=== PATIENT | male | born 1995 | race Caucasian/White ===

== ENCOUNTER 2016-12-30 14:17 | Emergency (ER) | payer SELFPAY ==
[2016-12-30 14:28] VITALS: BMI 30.1
--- NOTE | 2016-12-30 14:29 | PDOC ---
Rapid Medical Evaluation Chief Complaint: Constipation Time Seen by Provider: 12/30/16 14:23 Medical Evaluation: 12/30/16 14:26 Pain to abdomen- thinks is constipated - noted blood on paper Friday only., no fevers, vomiting, 12/30/16 14:28
--- NOTE | 2016-12-30 16:41 | PDOC ---
History of Present Illness - General History Source: Patient Exam Limitations: No Limitations - History of Present Illness Initial Comments: 12/30/16 16:42 The patient is a 21-year old man with no past medical history who presents to the emergency department via walk-in for abdominal pain. He admits that he has been experiencing intermittent left lower quadrant pulsating pains for the past 2-3 months. He admits he ignored his symptoms, as they would spontaneously resolve on their own throughout the day. Patient notes that 2 days ago, he was at work, when he suddenly felt constant left lower quadrant pain. He also recalls that his pain is exacerbated when he strains to have a bowel movement. He also notes streaks of bright red blood when he has a bowel movement. He also reports associated symptoms of nausea. Patient denies ever experiencing similar symptoms in the past. No other complaints. He denies chest pain, cough, shortness of breath, headache He denies vomiting, diarrhea He denies dysuria, hematuria, urinary frequency/urgency, flank pain, testicular pain or penile discharge. Allergies: No Known Drug Allergies Past Surgical History: None reported Social History: Current everyday cigarette smoker (approximately 5 cigarettes/ day). Drinks approximately 8-10 cans of beer every 8 days. No recreational drug use. Primary Care Physician: N/A <Tess Lew - Last Filed: 12/30/16 16:52> <Anayeli Lovelace - Last Filed: 12/30/16 16:56> <Haley So - Last Filed: 12/30/16 18:14> - General Chief Complaint: Pain Stated Complaint: PAIN Time Seen by Provider: 12/30/16 14:23 Past History <Tess Lew - Last Filed: 12/30/16 16:52> - Psycho/Social/Smoking Cessation Hx Suicidal Ideation: No Smoking History: Current every day smoker Number of Cigarettes Smoked Daily: 5 Information on smoking cessation initiated: No <Anayeli Lovelace - Last Filed: 12/30/16 16:56> <Haley So - Last Filed: 12/30/16 18:14> - Past Medical History Allergies/Adverse Reactions: Allergies Allergy/AdvReac Type Severity Reaction Status Date / Time No Known Allergies Allergy Verified 12/30/16 14:28 Home Medications: Ambulatory Orders NK [No Known Home Medication] 12/30/16 Review of Systems - Review of Systems Able to Perform ROS?: Yes Comments:: 12/30/16 16:42 GENERAL/CONSTITUTIONAL: No fever or chills. No weakness. HEAD, EYES, EARS, NOSE AND THROAT: No change in vision. No ear pain or discharge. No sore throat. CARDIOVASCULAR: No chest pain or shortness of breath. RESPIRATORY: No cough, wheezing, or hemoptysis. GASTROINTESTINAL: Yes: Left sided abdominal pain. Nausea. Blood per rectum. constipation. No vomiting, diarrhea. GENITOURINARY: No dysuria, frequency, or change in urination. MUSCULOSKELETAL: No joint or muscle swelling or pain. No neck or back pain. SKIN: No rash NEUROLOGIC: No headache, vertigo, loss of consciousness, or change in strength/ sensation. ENDOCRINE: No increased thirst. No abnormal weight change. HEMATOLOGIC/LYMPHATIC: No anemia, easy bleeding, or history of blood clots. ALLERGIC/IMMUNOLOGIC: No hives or skin allergy. <Tess Lew - Last Filed: 12/30/16 16:52> *Physical Exam - Vital Signs Last Vital Signs Temp Pulse Resp BP Pulse Ox 98.1 F 88 18 115/74 97 12/30/16 14:23 12/30/16 14:23 12/30/16 14:23 12/30/16 14:23 12/30/16 14:23 - Physical Exam Comments: 12/30/16 16:42 GENERAL: Awake, alert, and fully oriented, in no acute distress HEAD: No signs of trauma EYES: PERRLA, EOMI, sclera anicteric, conjunctiva clear ENT: Auricles normal inspection, hearing grossly normal, nares patent, oropharynx clear without exudates. Moist mucosa NECK: Normal ROM, supple, no lymphadenopathy, JVD, or masses LUNGS: Breath sounds equal, clear to auscultation bilaterally. No wheezes, and no crackles HEART: Regular rate and rhythm, normal S1 and S2, no murmurs, rubs or gallops ABDOMEN: Soft, nontender, normoactive bowel sounds. No guarding, no rebound. No masses EXTREMITIES: Normal range of motion, no edema. No clubbing or cyanosis. No cords, erythema, or tenderness NEUROLOGICAL: Cranial nerves II through XII grossly intact. Normal speech RECTAL: No stool in the vault. Nontender. No external/internal hemorrhoids. No active bleeding. No masses. <Tess Lew - Last Filed: 12/30/16 16:52> - Vital Signs Last Vital Signs Temp Pulse Resp BP Pulse Ox 98.1 F 88 18 115/74 97 12/30/16 14:23 12/30/16 14:23 12/30/16 14:23 12/30/16 14:23 12/30/16 14:23 <Anayeli Lovelace - Last Filed: 12/30/16 16:56> - Vital Signs Last Vital Signs Temp Pulse Resp BP Pulse Ox 98.1 F 88 18 115/74 97 12/30/16 14:23 12/30/16 14:23 12/30/16 14:23 12/30/16 14:23 12/30/16 14:23 <Haley So - Last Filed: 12/30/16 18:14> ED Treatment Course - LABORATORY CBC & Chemistry Diagram: 12/30/16 17:00 12/30/16 17:00 - ADDITIONAL ORDERS Additional order review: Laboratory Results 12/30/16 17:00 Sodium 140 Potassium 4.3 Chloride 106 Carbon Dioxide 30 Anion Gap 4 L BUN 9 Creatinine 0.8 Creat Clearance w eGFR > 60 Random Glucose 89 Calcium 9.4 Total Bilirubin 0.6 AST 28 ALT 39 Alkaline Phosphatase 81 Total Protein 7.6 Albumin 4.4 12/30/16 17:00 RBC 5.36 MCV 88.7 MCHC 34.1 RDW 13.0 MPV 7.8 Neutrophils % 68.9 Lymphocytes % 22.8 Monocytes % 6.7 Eosinophils % 1.1 Basophils % 0.5 <Haley So - Last Filed: 12/30/16 18:14> Medical Decision Making - Medical Decision Making 12/30/16 16:56 Pt presents to the ED complaining of a several month history of intermittent epigastric pain. Presents today because the pain was acutely worse on Friday. pain has since resolved. Abdomen is non tender. Also complaining of pain with defacation and one episode of blood streaked stool on Friday. rectal exam is normal. Will check labs to rule out biliary or pancreatic disease, discharge home if negative. <Anayeli Lovelace - Last Filed: 12/30/16 16:56> *DC/Admit/Observation/Transfer - Attestations Scribe Attestion: 12/30/16 16:43 Documentation prepared by Tess Lew, acting as internist medical doctor md for Anayeli Lovelace MD, /DO. <Tess Lew - Last Filed: 12/30/16 16:52> <Anayeli Lovelace - Last Filed: 12/30/16 16:56> <JudahHaleysamaria Castaneda - Last Filed: 12/30/16 18:14> Diagnosis at time of Disposition: Constipation Qualifiers: Constipation type: other constipation type Qualified Code(s): K59.09 - Other constipation Abdominal pain Qualifiers: Abdominal location: left lower quadrant Qualified Code(s): R10.32 - Left lower quadrant pain - Discharge Dispostion Disposition: HOME Condition at time of disposition: Stable - Patient Instructions Printed Discharge Instructions: DI for Constipation, DI for Abdominal Pain- Adult Additional Instructions: please follow up at the [facility] at [address] [place] [address] .The telephone number is [phone]
[2016-12-30 17:14] LABS: BASOPHIL 0.5 % (0-2.0); EOSINOPHIL 1.1 % (0-4.5); MCH 30.3 pg (25.7-33.7); MCHC 34.1 g/dl (32.0-35.9); MEAN CELL VOLUME 88.7 fl (80-96); MEAN PLT VOLUME 7.8 fl (7.5-11.1); NEUTROPHILS 68.9 % (42.8-82.8); PLATELET COUNT 259 K/MM3 (134-434); WHITE BLOOD COUNT 7.1 K/mm3 (4.0-10.0)
[2016-12-30 17:46] LABS: ALBUMIN 4.4 g/dl (3.4-5.0); ALK PHOS 81 U/L (45-117); ANION GAP 4 (8-16); BILIRUBIN,TOTAL 0.6 mg/dL (0.2-1.0); CALCIUM 9.4 mg/dL (8.5-10.1); CO2 30 mmol/L (21-32); CREATININE 0.8 mg/dL (0.7-1.3); GLUCOSE,RANDOM 89 mg/dL (74-106); SGOT/AST 28 U/L (15-37); SGPT/ALT 39 U/L (12-78); TOT PROT 7.6 g/dl (6.4-8.2)
[2016-12-30 19:08] VITALS: BP 112/59; PULSE 65; TEMP 98
== END 2016-12-30 19:08 | disposition home or self-care (01) ==
LOC: JER 14:17
DX: K59.00 Constipation, unspecified (principal)
CPT/HCPCS: 36415; 74020-TC; 80053; 85025; 99282-25

== ENCOUNTER 2018-11-05 05:27 | Inpatient (IN) | payer OTHER ==
[2018-11-05 05:48] VITALS: BMI 23.8
--- NOTE | 2018-11-05 05:51 | PDOC ---
History of Present Illness - General Chief Complaint: Pain, Acute Stated Complaint: ABD PAIN Time Seen by Provider: 11/05/18 05:50 History Source: Patient - History of Present Illness Initial Comments: 11/05/18 06:30 The patient is a 23 year old Kiswahili speaking/LEP male with no reported PMH who presents to our ED c/o acute onset of abdominal pain. Pain woke patient from sleep around 1 a.m. and is sharp, constant, epigastric and worse with laying supine. Endorses nausea w/o vomiting and chills. Denies fever, diarrhea/ constipation, dysuria/hematuria, scrotal/penile pain. H/o similar pain four years previous when he was in [place] which was self-resolving. NKDA Surgical: none reported PMD: None will refer to IM resident clinic As per EMR, patient evaluated in our ED in 2017 for LLQ abdominal pain. Discharged home with supportive care. Past History - Past Medical History Allergies/Adverse Reactions: Allergies Allergy/AdvReac Type Severity Reaction Status Date / Time No Known Allergies Allergy Verified 11/05/18 05:54 Home Medications: Ambulatory Orders NK [No Known Home Medication] 12/30/16 - Suicide/Smoking/Psychosocial Hx Smoking History: Current every day smoker Number of Cigarettes Smoked Daily: 4 Information on smoking cessation initiated: No Review of Systems - Review of Systems Constitutional: Yes: Chills. No: Fever Respiratory: No: Shortness of Breath, Wheezing Cardiac (ROS): No: Chest Pain, Lightheadedness, Palpitations, Syncope ABD/GI: Yes: Nausea, Abdominal cramping. No: Constipated, Diarrhea, Vomiting : No: Burning, Dysuria, Testicular Pain *Physical Exam - Vital Signs Last Vital Signs Temp Pulse Resp BP Pulse Ox 98.0 F 92 H 16 139/82 99 11/05/18 05:35 11/05/18 05:35 11/05/18 05:35 11/05/18 05:35 11/05/18 05:35 - Physical Exam Comments: 11/05/18 07:01 Awake, alert, non-toxic Abdomen: soft, peritoneal (guarding) w/palpation, equivocal Gutierrez's sign CV: S1, S2 no M/R/G Lungs: CLTA B/L Neuro: A&O x3 ED Treatment Course - LABORATORY CBC & Chemistry Diagram: 11/05/18 06:45 11/05/18 06:45 Medical Decision Making - Medical Decision Making 11/05/18 06:33 23 year old male with acute onset of abdominal pain. VS unremarkable. PE significant for TTP in epigastrum with peritoneal sign (rebound). Bedside U/S equivocal for acute cholecystitis. Also consider early appendicitis, pancreatitis, viral gastritis. Less likely SBO, bowel perforation or colitis. PLAN: 1. CBC, CMP, T&S, PT/PTT, Lipase 2. CTAP w/IV contrast 3. IV fluid 4. Morphine for pain control Reassess 11/05/18 07:16 Patient signed out to Dr. Judge (Resident) and Dr. Hoffman (Attending) Labs, CTAP pending *DC/Admit/Observation/Transfer Diagnosis at time of Disposition: Abdominal pain - Referrals Referrals: Weston Bower MD [Staff Physician] - - Patient Instructions - Post Discharge Activity
[2018-11-05] MEDS ORDERED: morphine CARPU-JECT 4 MG/1 ML DISP.SYRIN IVPUSH ONE (06:35)
[2018-11-05] MEDS ORDERED: SODIUM CHLORIDE 0.9% 500 ML INFUS.BAG IV ONE ×2 (06:35→09:58)
[2018-11-05] MEDS ORDERED: morphine SULFATE 4 MG/ML VIAL ONE (06:38)
[2018-11-05 06:57] LABS: EOS % 1.2 % (0-4.5); HEMATOCRIT 46.4 % (35.4-49); LYMPH % 9.9 % (8-40); MCH 30.4 pg (25.7-33.7); MCHC 34.5 g/dl (32.0-35.9); MEAN CELL VOLUME 88.1 fl (80-96); MEAN PLT VOLUME 7.5 fl (7.5-11.1); MONO % 6.9 % (3.8-10.2); PLATELET COUNT 245 K/MM3 (134-434); RBC 5.26 M/mm3 (4.00-5.60); RDW 13.2 % (11.9-15.9); WHITE BLOOD COUNT 9.7 K/mm3 (4.0-10.0)
[2018-11-05 07:09] LABS: INR 1.06 (0.83-1.09); PROTHROMBIN TIME (PATIENT) 12.5 SEC (9.7-13.0)
[2018-11-05 07:12] LABS: ACTIVATED PTT 31.7 SECONDS (25.2-36.5)
--- NOTE | 2018-11-05 07:14 | PDOC ---
Attending Attestation - Resident Resident Name: Ju Sheth - ED Attending Attestation I have performed the following: I have examined & evaluated the patient, The case was reviewed & discussed with the resident, I agree w/resident's findings & plan (v) - HPI HPI: 11/09/18 23:41 23-year-old otherwise healthy male complaining of abdominal pain, sudden in onset. - Physicial Exam PE: 11/09/18 23:41 Agree with resident's exam - Medical Decision Making 11/09/18 23:41 23-year-old male with abdominal pain Labs and CT scan for rule out appendicitis pending and signed out to oncoming shift
[2018-11-05 07:20] LABS: ALBUMIN 4.4 g/dl (3.4-5.0); ALK PHOS 98 U/L (45-117); ANION GAP 9 MMOL/L (8-16); BILIRUBIN,TOTAL 0.8 mg/dL (0.2-1); BLOOD UREA NITROGEN 14 mg/dL (7-18); CALCIUM 9.4 mg/dL (8.5-10.1); CHLORIDE 103 mmol/L (98-107); CO2 26 mmol/L (21-32); CREATININE 0.7 mg/dL (0.55-1.3); GLUCOSE,RANDOM 108 mg/dL (74-106); LIPASE 84 U/L (73-393); POTASSIUM 3.8 mmol/L (3.5-5.1); SGOT/AST 46 U/L (15-37); SGPT/ALT 123 U/L (13-61); SODIUM 138 mmol/L (136-145); TOT PROT 7.6 g/dl (6.4-8.2)
--- NOTE | 2018-11-05 07:49 | PDOC ---
*Physical Exam - Vital Signs Last Vital Signs Temp Pulse Resp BP Pulse Ox 98.0 F 92 H 16 139/82 99 11/05/18 05:35 11/05/18 05:35 11/05/18 05:35 11/05/18 05:35 11/05/18 05:35 - Physical Exam General Appearance: Yes: Appropriately Dressed, Moderate Distress HEENT: positive: PINA, Normal ENT Inspection, Normal Voice Neck: positive: Supple Respiratory/Chest: positive: Lungs Clear, Normal Breath Sounds. negative: Respiratory Distress Cardiovascular: positive: Regular Rhythm, Regular Rate, S1, S2 Vascular Pulses: Dorsalis-Pedis (R): 2+, Doralis-Pedis (L): 2+ Gastrointestinal/Abdominal: positive: Tender (RLQ), Flat, Decreased BS, Guarding , Rebound, Tenderness ([place]urney). negative: Normal Bowel Sounds, Soft, Increased Bowel Sounds Rectal Exam: positive: deferred Lymphatic: negative: Adenopathy Musculoskeletal: positive: Normal Inspection. negative: CVA Tenderness, Decreased Range of Motion Extremity: positive: Normal Capillary Refill, Normal Inspection, Normal Range of Motion Integumentary: positive: Normal Color, Dry, Warm (HOT) Neurologic: positive: Fully Oriented, Alert, Normal Mood/Affect, Normal Response ED Treatment Course - LABORATORY CBC & Chemistry Diagram: 11/05/18 06:45 11/05/18 06:45 - ADDITIONAL ORDERS Additional order review: Laboratory Results 11/05/18 11/05/18 06:45 06:45 PT with INR 12.50 INR 1.06 PTT (Actin FS) 31.7 Sodium 138 Potassium 3.8 Chloride 103 Carbon Dioxide 26 Anion Gap 9 BUN 14 Creatinine 0.7 Creat Clearance w eGFR 141.02 Random Glucose 108 H Calcium 9.4 Total Bilirubin 0.8 AST 46 H ALT 123 H Alkaline Phosphatase 98 Total Protein 7.6 Albumin 4.4 Lipase 84 11/05/18 06:45 RBC 5.26 MCV 88.1 MCHC 34.5 RDW 13.2 MPV 7.5 Neutrophils % 81.0 Lymphocytes % 9.9 D Monocytes % 6.9 Eosinophils % 1.2 Basophils % 1.0 - Medications Given in the ED: ED Medications Discontinued Medications Generic Name Dose Route Start Last Admin Trade Name Freq PRN Reason Stop Dose Admin Morphine Sulfate 4 mg 11/05/18 06:35 11/05/18 06:45 Morphine Injection - IVPUSH 11/05/18 06:36 4 mg ONCE ONE Administration Sodium Chloride 1,000 ml 11/05/18 06:35 11/05/18 06:45 Normal Saline - IV 11/05/18 06:36 1,000 ml ONCE ONE Administration Medical Decision Making - Medical Decision Making Patient signed out to me from Dr. Sheth the night resident. The patient is a 23 year old Arabic speaking/LEP male with no reported PMH who presents to our ED c/o acute onset of abdominal pain. Pain woke patient from sleep around 1 a.m. worse with laying supine. Endorses nausea w/o vomiting and chills. Denies fever, diarrhea/constipation, dysuria/hematuria, scrotal/penile pain. H/o similar pain four years previous when he was in [place] which was self -resolving. VS: WNL PE: Patient feels warm to me. Abdominal pain is worst in the RLQ. There is rebound and guarding. DDx IBNLT: Most likely appendicitis, will rule out cholecystitis, pancreatitis, colitis, and diverticulitis. Plan: Pre-op labs, NPO, lactic acid, CTAP, IV hydration, Analgesia, Surgical consult, probable admit. CT shows appendicitis. Surgery consult - Dr. Duncan rizo - Dr. Miranda is covering. Spoke with Dr. Lemon who requests to start Zosyn and he will see the patient today. Will admit to hospitalist. *DC/Admit/Observation/Transfer Diagnosis at time of Disposition: Abdominal pain, Acute appendicitis - Discharge Dispostion Condition at time of disposition: Guarded Decision to Admit order: Yes - Referrals Referrals: Weston Bower MD [Staff Physician] - - Patient Instructions - Post Discharge Activity
--- NOTE | 2018-11-05 08:50 | PDOC ---
*Physical Exam - Vital Signs Last Vital Signs Temp Pulse Resp BP Pulse Ox 98.7 F 83 17 136/73 98 11/05/18 08:43 11/05/18 08:43 11/05/18 08:43 11/05/18 08:43 11/05/18 08:44 ED Treatment Course - LABORATORY CBC & Chemistry Diagram: 11/05/18 06:45 11/05/18 06:45 - ADDITIONAL ORDERS Additional order review: Laboratory Results 11/05/18 11/05/18 11/05/18 07:27 06:45 06:45 PT with INR INR PTT (Actin FS) Sodium 138 Potassium 3.8 Chloride 103 Carbon Dioxide 26 Anion Gap 9 BUN 14 Creatinine 0.7 Creat Clearance w eGFR 141.02 Random Glucose 108 H Lactic Acid 0.8 Calcium 9.4 Total Bilirubin 0.8 AST 46 H ALT 123 H Alkaline Phosphatase 98 Total Protein 7.6 Albumin 4.4 Lipase 84 Blood Type O POSITIVE Antibody Screen Negative 11/05/18 06:45 PT with INR 12.50 INR 1.06 PTT (Actin FS) 31.7 Sodium Potassium Chloride Carbon Dioxide Anion Gap BUN Creatinine Creat Clearance w eGFR Random Glucose Lactic Acid Calcium Total Bilirubin AST ALT Alkaline Phosphatase Total Protein Albumin Lipase Blood Type Antibody Screen 11/05/18 06:45 RBC 5.26 MCV 88.1 MCHC 34.5 RDW 13.2 MPV 7.5 Neutrophils % 81.0 Lymphocytes % 9.9 D Monocytes % 6.9 Eosinophils % 1.2 Basophils % 1.0 - Medications Given in the ED: ED Medications Discontinued Medications Generic Name Dose Route Start Last Admin Trade Name Freq PRN Reason Stop Dose Admin Morphine Sulfate 4 mg 11/05/18 06:35 11/05/18 06:45 Morphine Injection - IVPUSH 11/05/18 06:36 4 mg ONCE ONE Administration Sodium Chloride 1,000 ml 11/05/18 06:35 11/05/18 06:45 Normal Saline - IV 11/05/18 06:36 1,000 ml ONCE ONE Administration Medical Decision Making - Medical Decision Making 11/05/18 08:49 23 yo m presenting with a complaint of abdominal pain concerning for appendicitis CT demonstrates acute appendicitis without abscess IVF Will give Zosyn Call placed to Dr Lemon (Gen surg) Will admit to hospitalist service *DC/Admit/Observation/Transfer Diagnosis at time of Disposition: Abdominal pain, Acute appendicitis - Discharge Dispostion Condition at time of disposition: Stable Decision to Admit order: Yes - Referrals Referrals: Weston Bower MD [Staff Physician] - - Patient Instructions - Post Discharge Activity
[2018-11-05] MEDS ORDERED: PIPERACILLIN/TAZOB 4.5 GM 4.5 GM in DEXTROSE 5%-WATER 100 ML IVPB ONE (08:51)
[2018-11-05] MEDS ORDERED: PIPERACILLIN/TAZOB 4.5 GM 4.5 GM/100 ML BAG IVPB ONE (08:54)
[2018-11-05] MEDS ORDERED: morphine SULFATE 4 MG/ML VIAL IVPUSH PRN (09:52)
--- NOTE | 2018-11-05 09:54 | HP ---
CHIEF COMPLAINT: PCP: HISTORY OF PRESENT ILLNESS: This is a 23 yo M with no PMH, who presents due to sudden onset of severe abdominal pain. Pain started at 1 am, waking him up from sleep, is sharp, constant, epigastric, nonradiating, aggravated by lying down, associated with n/ v and chills. Denies fever, diarrhea/constipation, dysuria/hematuria, scrotal/ penile pain. Ct abd/pelvis in ED showed acute appendicitis w/o abscess, surgery was consulted and agreed to take patient to OR. ER course was notable for: (1)ct abd pelvis, labs (2)morphine, zosyn Recent Travel: denies PAST MEDICAL HISTORY: as above PAST SURGICAL HISTORY: as above Social History: Smoking: denies Alcohol: denies Drugs: denies Family History: noncontributory Allergies No Known Allergies Allergy (Verified 11/05/18 05:54) HOME MEDICATIONS: Home Medications Medication Instructions Recorded NK [No Known Home Medication] 12/30/16 REVIEW OF SYSTEMS CONSTITUTIONAL: Absent: fever, diaphoresis, generalized weakness, weight change HEENT: Absent: rhinorrhea, nasal congestion, throat pain CARDIOVASCULAR: Absent: chest pain, syncope, palpitations RESPIRATORY: Absent: cough, shortness of breath GASTROINTESTINAL: Absent: diarrhea, constipation, melena, hematochezia GENITOURINARY: Absent: dysuria MUSCULOSKELETAL: Absent: back pain, neck pain SKIN: Absent: rash, itching, pallor HEMATOLOGIC/IMMUNOLOGIC: Absent: easy bleeding, easy bruising ENDOCRINE: Absent: unexplained weight gain, unexplained weight loss NEUROLOGIC: Absent: headache, focal weakness or paresthesias PSYCHIATRIC: Absent: anxiety, depression PHYSICAL EXAMINATION Vital Signs - 24 hr 11/05/18 11/05/18 11/05/18 05:35 08:43 08:44 Temperature 98.0 F 98.7 F Pulse Rate 92 H Pulse Rate [ 83 Right] Respiratory 16 17 Rate Blood Pressure 139/82 Blood Pressure 136/73 [Right Arm] O2 Sat by Pulse 99 98 98 Oximetry (%) GENERAL: Awake, alert, and fully oriented, in no acute distress. HEAD: Normal with no signs of trauma. EYES: Pupils equal, round and reactive to light, extraocular movements intact, sclera anicteric, conjunctiva clear. EARS, NOSE, THROAT: Moist mucous membranes. NECK: supple LUNGS: Breath sounds equal, clear to auscultation bilaterally. HEART: Regular rate and rhythm, normal S1 and S2 ABDOMEN: s/p lap appe surgical incisions clean nondraining. globally reduced bowel sounds MUSCULOSKELETAL: No CVA tenderness. UPPER EXTREMITIES: 2+ pulses, warm, well-perfused. No peripheral edema. LOWER EXTREMITIES: warm, well-perfused. No calf tenderness. No peripheral edema. NEUROLOGICAL: Cranial nerves II-XII grossly intact. Normal speech. PSYCHIATRIC: Cooperative. Good eye contact. Appropriate mood and affect. SKIN: Warm, dry Laboratory Results - last 24 hr 11/05/18 11/05/18 11/05/18 06:45 06:45 06:45 WBC 9.7 RBC 5.26 Hgb 16.0 Hct 46.4 MCV 88.1 MCH 30.4 MCHC 34.5 RDW 13.2 Plt Count 245 MPV 7.5 Absolute Neuts (auto) 7.9 Neutrophils % 81.0 Lymphocytes % 9.9 D Monocytes % 6.9 Eosinophils % 1.2 Basophils % 1.0 Nucleated RBC % 0 PT with INR 12.50 INR 1.06 PTT (Actin FS) 31.7 Sodium 138 Potassium 3.8 Chloride 103 Carbon Dioxide 26 Anion Gap 9 BUN 14 Creatinine 0.7 Creat Clearance w eGFR 141.02 Random Glucose 108 H Lactic Acid Calcium 9.4 Total Bilirubin 0.8 AST 46 H ALT 123 H Alkaline Phosphatase 98 Total Protein 7.6 Albumin 4.4 Lipase 84 Blood Type Antibody Screen 11/05/18 11/05/18 11/05/18 06:45 07:27 08:45 WBC RBC Hgb Hct MCV MCH MCHC RDW Plt Count MPV Absolute Neuts (auto) Neutrophils % Lymphocytes % Monocytes % Eosinophils % Basophils % Nucleated RBC % PT with INR INR PTT (Actin FS) Sodium Potassium Chloride Carbon Dioxide Anion Gap BUN Creatinine Creat Clearance w eGFR Random Glucose Lactic Acid 0.8 Calcium Total Bilirubin AST ALT Alkaline Phosphatase Total Protein Albumin Lipase Blood Type O POSITIVE Cancelled Antibody Screen Negative 11/05/18 08:45 WBC RBC Hgb Hct MCV MCH MCHC RDW Plt Count MPV Absolute Neuts (auto) Neutrophils % Lymphocytes % Monocytes % Eosinophils % Basophils % Nucleated RBC % PT with INR INR PTT (Actin FS) Sodium Potassium Chloride Carbon Dioxide Anion Gap BUN Creatinine Creat Clearance w eGFR Random Glucose Lactic Acid Calcium Total Bilirubin AST ALT Alkaline Phosphatase Total Protein Albumin Lipase Blood Type O POSITIVE Antibody Screen ASSESSMENT/PLAN: This is a 23 yo M with no PMH, who presents due to sudden onset of severe abdominal pain. Acute appendicitis POD 0 s/p lap appe -pain management with morphine iv and oxycodone po -IVF hydration NS @ 100 -incentive spirometer -wound care -regular diet per surgery -IV zosyn -zofran prn -ppi -scds Roberta - Problem List - Problem (1) Acute appendicitis Code(s): K35.80 - UNSPECIFIED ACUTE APPENDICITIS Visit type - Emergency Visit Emergency Visit: Yes ED Registration Date: 11/05/18 Care time: The patient presented to the Emergency Department on the above date and was hospitalized for further evaluation of their emergent condition. - New Patient This patient is new to me today: Yes Date on this admission: 11/05/18 - Critical Care Critical Care patient: No
[2018-11-05] MEDS ORDERED: MIDAZOLAM HCL 2 MG/2 ML SINGLE DOSE VIAL ONE (12:00)
[2018-11-05] MEDS ORDERED: ROCURONIUM BROMIDE 50 MG/5 ML VIAL ONE (12:00)
[2018-11-05] MEDS ORDERED: BUPIVACAINE HCL/PF 0.5% (5MG/ML) 10 ML VIAL ONE (12:28)
--- NOTE | 2018-11-05 12:28 | PN ---
Progress Note (short form) - Note Progress Note: surgery pt seen and examined. full consult dictated. 23m with appendicitis. for surgery. delgado.
[2018-11-05] MEDS ORDERED: oxyCODONE HCL 5 MG TABLET PO PRN (12:31)
[2018-11-05] MEDS ORDERED: ACETAMINOPHEN 325 MG TABLET (FP) PO PRN (12:31)
[2018-11-05] MEDS ORDERED: morphine SULFATE 4 MG/ML VIAL IVPB PRN (12:31)
[2018-11-05] MEDS ORDERED: ONDANSETRON 4 MG/2 ML VIAL IVPUSH PRN (12:31)
--- NOTE | 2018-11-05 12:44 | OP ---
Operative Note - Note: Operative Date: 11/05/18 Pre-Operative Diagnosis: acute appendicitis Operation: laparoscopic appendectomy, lavage Findings: thickened, inflamed appendix, non perforated Post-Operative Diagnosis: Same as Pre-op Surgeon: Baljit Lemon Anesthesiologist/DOG RAISER: Vitor Gutierrez Anesthesia: General Specimens Removed: appendix Estimated Blood Loss (mls): 10 Operative Report Dictated: Yes
[2018-11-05] MEDS ORDERED: SODIUM CHLORIDE 1,000 ML IV SCH (12:45)
[2018-11-05] MEDS ORDERED: BUPIVACAINE HCL/PF (5 MG/ML) 30 ML VIAL IJ ONE (13:15)
[2018-11-05] MEDS ORDERED: NEOSTIGMINE METHYLSULFATE 0.5 MG/1 ML - 10 ML MDV ONE (13:24)
--- NOTE | 2018-11-05 13:37 | EKG ---
Test Reason : Blood Pressure : / mmHG Vent. Rate : 097 BPM Atrial Rate : 097 BPM P-R Int : 130 ms QRS Dur : 096 ms QT Int : 352 ms P-R-T Axes : 050 031 033 degrees QTc Int : 447 ms NORMAL SINUS RHYTHM WITH SINUS ARRHYTHMIA NORMAL ECG NO PREVIOUS ECGS AVAILABLE Confirmed by CHUN LERMA MD ([id number]) on 11/05/2018 1:36:46 PM Referred By: Confirmed By:CHUN LERMA MD
--- NOTE | 2018-11-05 13:37 | CONS ---
DATE OF CONSULTATION: 11/05/2018 REASON FOR CONSULTATION: Acute appendicitis. This is an emergency consultation. BRIEF HISTORY: This is a 23-year-old male who presents to [facility] with now almost 12 hours of right lower quadrant abdominal pain without nausea or vomiting. He was noted to have normal labs. He had a CT scan of his abdomen and pelvis which was consistent with acute uncomplicated appendicitis. The patient was admitted to the hospital, started on Zosyn antibiotic and currently feels well without fever. PAST MEDICAL HISTORY: Negative. PAST SURGICAL HISTORY: Nil. SOCIAL HISTORY: Positive for alcohol and tobacco. He has been encouraged to quit. FAMILY HISTORY: Negative for malignancy in the immediate family. MEDICATIONS: He takes no medications. ALLERGIES: He has no known drug allergies. REVIEW OF SYSTEMS: General: Denies fatigue or malaise. Cardiac: Denies chest pain or palpitations. Respiratory: Denies shortness of breath or wheeze. Gastrointestinal: As seen in HPI. Denies diarrhea, denies blood in his stool, denies recent weight loss. Genitourinary: Denies dysuria. Musculoskeletal: Denies joint pain. Psychiatric: Denies depression, anxiety, or hearing voices. PHYSICAL EXAMINATION: General: This is a well-developed, well-nourished 23-year-old male in no distress. Vital signs: He is afebrile. HEENT: His head is normocephalic. His sclerae are anicteric. Neck: Supple. Chest: Clear. Abdomen: Soft. He has mild lateral right lower quadrant tenderness without rebound or guarding. He has no obvious hernias. He has a small scar in his left upper quadrant, which he states is nonsurgical. Extremities: Have no edema. REVIEW OF LABORATORY DATA: White blood cell count is 9.7 without a shift, coagulation profile is normal. Chemistries are unremarkable with the exception of mildly elevated transaminases. ASSESSMENT: This is a 23-year-old male with right lower quadrant pain, right lower quadrant tenderness, and a CT scan evidence of acute appendicitis. Clinically, this is acute appendicitis. He is currently responding well to medical management. However, he wishes to proceed with surgery. He prefers the more definitive nature of surgery, the likely decreased length of stay, the prevention of future recurrence, and the ability to pathologically evaluate the appendix. Risks and benefits were explained to the patient in detail. These are including, but not limited to, the possibility of conversion to open, possibility of injury to viscera or bladder, possibility of blood loss requiring blood transfusion, possibility of future infection, possibility of future hernia, possibility of future obstruction, plus a multitude of medical risks including, but not limited to, cardiac, neurologic, pulmonary, and vascular complications, even . Patient understands these risks and is agreeable to surgery. I agree with the choice of Zosyn antibiotic and will proceed with surgery. DO TOMMIE RICKETTS/[id number]
[2018-11-05] MEDS ORDERED: LACTATED RINGERS SOLUTION 1,000 ML IV SCH (14:30)
[2018-11-05] MEDS: PIPERACILLIN/TAZOB 3.375 GM 3.375 GM in DEXTROSE 5%-WATER - 50 ML IVPB SCH ×4 (15:00→20:21)
[2018-11-05] MEDS ORDERED: PIPERACILLIN/TAZOB 3.375 GM 3.375 GM in DEXTROSE 5%-WATER - 50 ML IVPB SCH (15:00)
--- NOTE | 2018-11-05 15:13 | OP ---
DATE OF OPERATION: 11/05/2018 PREOPERATIVE DIAGNOSIS: Acute appendicitis. POSTOPERATIVE DIAGNOSIS: Acute appendicitis. PROCEDURE: Laparoscopic appendectomy, lavage. SURGEON: Baljit Lemon DO EDUCATIONAL TECHNOLOGY COORDINATOR: There was no store administrative assistant. ANESTHESIOLOGIST: Vitor Gutierrez MD (general) INTRAOPERATIVE FINDINGS: A very thick and inflamed, retrocecal, nonperforated appendix. BLOOD LOSS: Minimal. COMPLICATIONS: None. DRAINS: None. DISPOSITION: To recovery in stable condition. BRIEF HISTORY: This is a 23-year-old male, presented to [facility] with signs and symptoms of acute appendicitis. He had a CAT scan to support that. He presents now for surgery. He had received Zosyn antibiotic. PROCEDURE: The patient was placed in supine position. General anesthesia was initiated. The abdomen was prepped and draped in sterile fashion, and a Bonilla catheter had been inserted. Next, a vertical incision was made infraumbilical with scalpel used to go through skin and subcutaneous tissue. The fascia was then lifted with a Juarez clamp and incised vertically. The peritoneum was entered bluntly. Next, a 0 Vicryl stitch was placed across the fascial defect and used to secure the Rachel trocar. Pneumoperitoneum was then created, followed by insertion of a 5- mm 30-degree laparoscope. An additional 5-mm trocar was placed suprapubic and one in the left lower quadrant. Attention was then turned toward the right lower quadrant. The appendix was seen, it was retrocecal, and became apparent once the cecum was mobilized. A window was made at its base. The LigaSure device was used to divide the mesoappendix with multiple welds. There appeared to be an appendicolith at its base. The Ethicon purple load 45-mm stapler was used to take the appendix at its base just proximal to the appendicolith along the cecal cap in 1 firing. The staple line was inspected, it was intact. There was no bleeding, no breaks, no sign of ischemia. The appendix was placed in a specimen bag and removed through the infraumbilical trocar site and sent to Pathology marked as specimen. A limited lavage was done and all return was clear. Pneumoperitoneum was released. No blood was noted. The fascia of the infraumbilical trocar site was closed with multiple interrupted 0 Vicryl sutures and the 3 skin incisions were closed with Biosyn, and Dermabond dressing was placed. Overall the patient tolerated the procedure well , there were no complications, Bonilla catheter was placed at the beginning of the operation, it was removed at the end. DO TOMMIE RICKETTS/[id number] MTDD
--- NOTE | 2018-11-05 20:11 | PN ---
Teaching Attending Note Name of Resident: Thania Cheng ATTENDING PHYSICIAN STATEMENT I saw and evaluated the patient. I reviewed the resident's note and discussed the case with the resident. I agree with the resident's findings and plan as documented. SUBJECTIVE: Seen and examined at bedside, patient is postop and feeling better, hungry OBJECTIVE: Vital Signs Period Temp Pulse Resp BP Sys/Menezes Pulse Ox Last 24 Hr 97.9 F-99.0 F 79-700 15-22 115-145/66-88 94-100 Laboratory Results - last 24 hr 11/05/18 11/05/18 11/05/18 06:45 06:45 06:45 WBC 9.7 RBC 5.26 Hgb 16.0 Hct 46.4 MCV 88.1 MCH 30.4 MCHC 34.5 RDW 13.2 Plt Count 245 MPV 7.5 Absolute Neuts (auto) 7.9 Neutrophils % 81.0 Lymphocytes % 9.9 D Monocytes % 6.9 Eosinophils % 1.2 Basophils % 1.0 Nucleated RBC % 0 PT with INR 12.50 INR 1.06 PTT (Actin FS) 31.7 Sodium 138 Potassium 3.8 Chloride 103 Carbon Dioxide 26 Anion Gap 9 BUN 14 Creatinine 0.7 Creat Clearance w eGFR 141.02 Random Glucose 108 H Lactic Acid Calcium 9.4 Total Bilirubin 0.8 AST 46 H ALT 123 H Alkaline Phosphatase 98 Total Protein 7.6 Albumin 4.4 Lipase 84 Blood Type Antibody Screen 11/05/18 11/05/18 11/05/18 06:45 07:27 08:45 WBC RBC Hgb Hct MCV MCH MCHC RDW Plt Count MPV Absolute Neuts (auto) Neutrophils % Lymphocytes % Monocytes % Eosinophils % Basophils % Nucleated RBC % PT with INR INR PTT (Actin FS) Sodium Potassium Chloride Carbon Dioxide Anion Gap BUN Creatinine Creat Clearance w eGFR Random Glucose Lactic Acid 0.8 Calcium Total Bilirubin AST ALT Alkaline Phosphatase Total Protein Albumin Lipase Blood Type O POSITIVE Cancelled Antibody Screen Negative 11/05/18 08:45 WBC RBC Hgb Hct MCV MCH MCHC RDW Plt Count MPV Absolute Neuts (auto) Neutrophils % Lymphocytes % Monocytes % Eosinophils % Basophils % Nucleated RBC % PT with INR INR PTT (Actin FS) Sodium Potassium Chloride Carbon Dioxide Anion Gap BUN Creatinine Creat Clearance w eGFR Random Glucose Lactic Acid Calcium Total Bilirubin AST ALT Alkaline Phosphatase Total Protein Albumin Lipase Blood Type O POSITIVE Antibody Screen Negative Current Medications Acetaminophen (Tylenol -) 650 mg PO Q4H PRN PRN Reason: FEVER Enoxaparin Sodium (Lovenox -) 40 mg SQ DAILY FRANKLYN Sodium Chloride (Normal Saline -) 1,000 mls @ 100 mls/hr IV ASDIR FRANKLYN Last Admin: 11/05/18 15:40 Dose: 0 mls Piperacillin Sod/Tazobactam (Sod 3.375 gm/ Dextrose) 50 mls @ 100 mls/hr IVPB Q6H-IV FRANKLYN; Protocol Piperacillin Sod/Tazobactam (Sod 3.375 gm/ Dextrose) 50 mls @ 100 mls/hr IVPB Q6H-IV FRANKLYN Stop: 11/06/18 09:29 Last Admin: 11/05/18 15:00 Dose: 50 mls Morphine Sulfate (Morphine Sulfate) 4 mg IVPB Q3H PRN PRN Reason: PAIN LEVEL 7 - 10 Last Admin: 11/05/18 17:34 Dose: 4 mg Ondansetron HCl (Zofran Injection) 4 mg IVPUSH Q6H PRN PRN Reason: NAUSEA Oxycodone HCl (Roxicodone -) 7.5 mg PO Q4H PRN PRN Reason: PAIN LEVEL 4 - 6 Pantoprazole Sodium (Protonix Iv) 40 mg IVPUSH DAILY FRANKLYN ALL IMAGING REPORTS REVIEWED PHYSICAL EXAM: GENERAL: NAD, COMFORTABLE CVS: S1S2, RRR, NO M/R/G ABDOMEN: SOFT, POST INCISIONAL TENDERNESS, ND, NABS LUNGS: CTA B/L, NO W/R/R, UNLABORED EXT: NO C/C/E, NO EDEMA ASSESSMENT AND PLAN: -Acute appendicitis POD #0 s/p lap appendectomy, no complications -pain management adequate -IVF, if tolerates dinner dc fluids -incentive spirometer, encouraged ambulation -c/w IV abx -antiemetics prn -patient admits to drinking etoh 4-5 times a week and smokes 5 cigarettes a day , counseled on cessation
[2018-11-05] MEDS ORDERED: PIPERACILLIN/TAZOBACTAM 3.375 GM VIAL IVPB ONE (20:13)
[2018-11-05] MEDS ORDERED: DEXTROSE 5%-WATER - 50 ML IVPB ONE (20:14)
[2018-11-06] MEDS ORDERED: PIPERACILLIN/TAZOBACTAM 3.375 GM VIAL IVPB ONE ×2 (02:57→09:10)
[2018-11-06] MEDS ORDERED: DEXTROSE 5%-WATER - 50 ML IVPB ONE ×2 (02:57→09:10)
[2018-11-06] MEDS: PIPERACILLIN/TAZOB 3.375 GM 3.375 GM in DEXTROSE 5%-WATER - 50 ML IVPB SCH ×2 (03:02→09:14)
[2018-11-06 07:00] LABS: BASO % 0.2 % (0-2.0); EOS % 0.5 % (0-4.5); HEMATOCRIT 40.4 % (35.4-49); HEMOGLOBIN 13.8 GM/dL (11.7-16.9); LYMPH % 17.8 % (8-40); MCH 30.6 pg (25.7-33.7); MCHC 34.3 g/dl (32.0-35.9); MEAN CELL VOLUME 89.5 fl (80-96); NEUT % 70.5 % (42.8-82.8); PLATELET COUNT 232 K/MM3 (134-434); RBC 4.51 M/mm3 (4.00-5.60); WHITE BLOOD COUNT 8.7 K/mm3 (4.0-10.0)
[2018-11-06 07:04] LABS: ANION GAP 6 MMOL/L (8-16); BLOOD UREA NITROGEN 10 mg/dL (7-18); CALCIUM 8.2 mg/dL (8.5-10.1); CHLORIDE 105 mmol/L (98-107); CO2 28 mmol/L (21-32); CREATININE 0.8 mg/dL (0.55-1.3); GLUCOSE,RANDOM 100 mg/dL (74-106); MAGNESIUM 2.3 mg/dL (1.8-2.4); PHOSPHOROUS 4.6 mg/dL (2.5-4.9); POTASSIUM 4.2 mmol/L (3.5-5.1); SODIUM 139 mmol/L (136-145)
[2018-11-06] MEDS ORDERED: PANTOPRAZOLE SODIUM 40 MG VIAL IVPUSH SCH (10:00)
[2018-11-06] MEDS ORDERED: ENOXAPARIN NA (PORCINE) 40 MG/0.4 ML DISP.SYRIN SQ SCH (10:00)
--- NOTE | 2018-11-06 12:18 | PN ---
Progress Note (short form) - Note Progress Note: surgery pt tolerating diet. ambulating and voiding. afebrile wbc 8 Plan- surgically stable for d/c. recommend 5 days augmentin 875 bid. ok to shower. regular diet. f/u in 2 weeks. [phone]
[2018-11-06] MEDS ORDERED: PIPERACILLIN/TAZOB 3.375 GM 3.375 GM in DEXTROSE 5%-WATER - 50 ML IVPB SCH (15:00)
[2018-11-06 15:18] VITALS: BP 108/68; PULSE 65; TEMP 98.4
--- NOTE | 2018-11-06 15:23 | PN ---
Teaching Attending Note Name of Resident: Susanne Mcclure ATTENDING PHYSICIAN STATEMENT I saw and evaluated the patient. I reviewed the resident's note and discussed the case with the resident. I agree with the resident's findings and plan as documented. SUBJECTIVE: no fever or chills . , has mild abd pain . no N.V OBJECTIVE: NAD CV: RRr Lungs: CTAB Abd: soft, Nd, TTP in RLQ. endoscopic wounds are clean and no discharge noted ASSESSMENT AND PLAN: 23 y/o man with no significant PMH who presented with abd pain and was found to have acute appendicitis 1- Acute appendicitis : s/p resection doing well. dc oon augmentin per Sx Recs f/u with dr. Lemon tylenol and ibuprofen for pain as needed dc home
--- NOTE | 2018-11-06 18:13 | DS ---
Physical Exam: SUBJECTIVE: Patient seen and examined at bedside this morning. no acute events overnight. Patient was able to tolerate regular diet with no nausea and vomiting. OBJECTIVE: Vital Signs Temperature 98.4 F 11/06/18 15:17 Pulse Rate 65 11/06/18 15:17 Respiratory Rate 20 11/06/18 10:00 Blood Pressure 108/68 11/06/18 15:17 O2 Sat by Pulse Oximetry (%) 96 11/06/18 09:00 PHYSICAL EXAM GENERAL: The patient is awake, alert, and fully oriented, in no acute distress. HEAD: Normal with no signs of trauma. EYES: PERRLA, EOMI, sclera anicteric, conjunctiva clear. ENT: oropharynx clear without exudates, moist mucous membranes. NECK: Trachea midline, full range of motion, supple. LUNGS: Breath sounds equal, clear to auscultation bilaterally. HEART: Regular rate and rhythm, S1, S2 without murmur, rub or gallop. ABDOMEN: Soft, +tenderness around incision sites, nondistended, normoactive bowel sounds. EXTREMITIES: 2+ pulses, warm, well-perfused, no edema. NEUROLOGICAL: Cranial nerves II through XII grossly intact. Normal speech, normal gait. PSYCH: Normal mood, normal affect. SKIN: Warm, dry, normal turgor, no rashes or lesions noted. LABS Laboratory Results - last 24 hr 11/06/18 11/06/18 05:45 05:45 WBC 8.7 RBC 4.51 Hgb 13.8 Hct 40.4 MCV 89.5 MCH 30.6 MCHC 34.3 RDW 13.0 Plt Count 232 MPV 8.0 Absolute Neuts (auto) 6.1 Neutrophils % 70.5 Lymphocytes % 17.8 D Monocytes % 11.0 H Eosinophils % 0.5 Basophils % 0.2 Nucleated RBC % 0 Sodium 139 Potassium 4.2 Chloride 105 Carbon Dioxide 28 Anion Gap 6 L BUN 10 Creatinine 0.8 Creat Clearance w eGFR 120.88 Random Glucose 100 Calcium 8.2 L Phosphorus 4.6 Magnesium 2.3 HOSPITAL COURSE: Date of Admission:11/05/18 Date of Discharge: 11/06/18 Patient is a 23 year old male with no significant past medical history presented to the ED with severe RLQ pain. CTAP showed acute appendicitis. Patient underwent laparoscopy appendectomy and showed inflamed appendix with no perforation. Patient tolerated the procedure well and pain was controlled. Patient was started on regular diet and was able to tolerate food. Patient was discharged with instructions to followup with PCP and surgery. Minutes to complete discharge: 37 Discharge Summary Reason For Visit: ACUTE APPENDICITIS Condition: Improved - Instructions Diet, Activity, Other Instructions: Your visit You were admitted to the hospital because you had belly pain. You had appendicitis. You underwent surgery with Dr. Laurent and had your appendix removed. Medications Please take the following medications as prescribed. 1. Augmentin 875mg twice a day for 5 days. Follow-up Please follow up with the surgeon (Dr. Laurent) in 2 weeks. Please follow up with your primary care doctor within 1 week. Please call the resident medical clinic to schedule an appointment with Dr. Verde. Orlando Ruiz M.D. Britt Bean.Joanne. [address], [address] [place] [address] Post Anesthesia/IV Sedation Do not drive a motor vehicle or drink alcohol for the next 24 hours. Physical Activity Resume normal everyday activity as tolerated. No heavy lifting or exercise until seen by your surgeon. You may walk unlimited amounts and climb stairs. You may resume driving a car when you feel safe and comfortable behind the wheel. Wound Care / Bathing If you have a bandage, leave it on, and keep dry, for 48 to 72 hours. After that time, discard the outer bandage. If there are tapes on the skin under the outer bandage, leave then in place. They will peel of in the next 7-10 days. Do not peel them off. You may shower in 48-72 hours after the bandage removal. If there are tapes present on the skin, you may shower over them. If you have clear glue covering your incision, you may shower in 24 hours. It will peel off in the next 1-2 weeks. Diet There are no dietary restrictions. Eat healthy, high fiber foods. Drink 6-8 glasses of fluid each day. This will assist in keeping your bowels regular. Pain Management You may take Tylenol (Acetaminophen) or Ibuprofen (Motrin, Advil, etc) for mild pain. Prescription medication, if ordered, should be taken as prescribed for moderate to severe pain. Bruising Some black and blue areas on or around your surgical site are normal and will disappear in a few days. Male groin hernia patients may experience swelling and black/blueness in the penis and scrotum. This will resolve on its own in 1-[address] PANDEY / DR. RUIZ / DR. LAURENT FOR ANY OF THE FOLLOWING: * Severe pain not relieved by medication * Fever of 101 or higher * Excessive bleeding or drainage on dressing * Inability to urinate Call the office at [phone] for an appointment in 10-14 days. Referrals: [facility] [place] [Provider Group] Baljit Laurent MD [Staff Physician] - 2 Weeks Disposition: HOME - Home Medications Comprehensive Discharge Medication List: Ambulatory Orders Acetaminophen [Tylenol .Regular Strength -] 650 mg PO Q4H PRN tablet 11/06/18 Amoxicillin/Potassium Clav [Augmentin 875-125 Tablet] 1 each PO BID #10 tablet 11/06/18 Ibuprofen 400 mg PO Q8H PRN #20 tablet 11/06/18 This patient is new to me today: Yes Date on this admission: 11/06/18 Emergency Visit: Yes ED Registration Date: 11/05/18 Care time: The patient presented to the Emergency Department on the above date and was hospitalized for further evaluation of their emergent condition. Critical Care patient: No - Discharge Referral Referred to [facility] Med [facility] No
--- NOTE | 2018-11-09 16:19 | PATH ---
Surgical Pathology Report Patient Name: NOHELIA AKERS [facility]. Rec. #: [id number] /Age/Gender: 1995 (Age: 23) / M Account: [id number] Location: [address] [place] [address] Taken: 11/05/2018 Received: 11/06/2018 Reported: 11/09/2018 Physicians: Balijt Lemon M.D. PHYSICIAN EMERGENCY DEPT Specimen(s) Received APPENDIX Clinical History Acute appendicitis Final Diagnosis APPENDIX, APPENDECTOMY: ACUTE APPENDICITIS AND PERIAPPENDICITIS. Electronically Signed Seun Frank M.D. Gross Description Received in formalin, labeled "appendix," is a 7 cm. in length vermiform appendix with a stapled margin of resection and moderate attached fat. The serosa is stevenson-ag and smooth. Sectioning reveals brown fecal material within lumen. The wall of the appendix averages 0.1 cm. in thickness. Calibration Laboratory Technician sections are submitted in one cassette. /11/06/2018 saudi11/06/2018
== END 2018-11-06 17:34 | disposition home or self-care (01) | DRG 225 ==
LOC: JER 05:27 → JERBED 08:55 → J6S 10:54
PROVIDERS: ADMIT Internal Medicine; ATTEND Internal Medicine
PROC: 0DTJ4ZZ Resection of Appendix, Percutaneous Endoscopic Approach (ICD-10-PCS; principal; 2018-11-05 12:30)
DX: K35.890 Other acute appendicitis without perforation or gangrene (principal)
CPT/HCPCS: 36415; 74177-TC; 80048; 80053; 83605; 83690; 83735; 84100; 85025; 85610; 85730; 86850; 86900; 86901; 88304-TC; 93005; 93010; 94760; 99283-25; J7030

== ENCOUNTER 2018-12-03 23:43 | Emergency (ER) | payer OTHER | END 2018-12-04 03:55 | disposition home or self-care (01) | LOC: JER 23:43 | PROC: 3E0337Z Introduction of Electrolytic and Water Balance Substance into Peripheral Vein, Percutaneous Approach (ICD-10-PCS; principal; 2018-12-03) | DX: R42 Dizziness and giddiness (principal); K52.9 Noninfective gastroenteritis and colitis, unspecified; R55 Syncope and collapse ==

== ENCOUNTER 2019-01-06 15:25 | Emergency (ER) | payer OTHER ==
[2019-01-06 15:30] VITALS: BMI 22.6
--- NOTE | 2019-01-06 15:39 | PDOC ---
Rapid Medical Evaluation Chief Complaint: Pain Time Seen by Provider: 01/06/19 15:29 Medical Evaluation: Allergies Allergy/AdvReac Type Severity Reaction Status Date / Time No Known Allergies Allergy Verified 01/06/19 15:31 Vital Signs Temp Pulse Resp BP Pulse Ox 98.1 F 85 18 122/70 99 01/06/19 15:27 01/06/19 15:27 01/06/19 15:27 01/06/19 15:27 01/06/19 15:27 01/06/19 15:35 Pt c/o: continual nausea and palpitations since appendectomy a few months ago. Pt went to the medical center and was told he needed to f/u with pmd and entrance guard. no c /o palpitations today Pt on brief exam: vss, no abd tenderness Pt ordered for: labs and urine pt to proceed to the ED Discharge Disposition - Diagnosis Nausea, Hepatic steatosis - Discharge Dispostion Disposition: HOME Condition at time of disposition: Stable - Prescriptions Prescriptions: Ondansetron [Zofran Odt -] 4 mg SL TID PRN #21 od.tablet PRN Reason: nausea Pantoprazole Sodium [Protonix] 40 mg PO DAILY #20 tablet.dr - Referrals Referrals: Elver Briones MD [Staff Physician] - - Patient Instructions Printed Discharge Instructions: Nonalcoholic Fatty Liver Disease Additional Instructions: Your CATs scan shows hepatic steatosis which is a fatty infiltrate of the liver and mild enlarged spleen. Take prescribed medication as needed for nausea. eat low fat diet. Follow-up with referred GI doctor Print Language: ROMANSH - Post Discharge Activity
[2019-01-06 16:34] LABS: BASO % 0.8 % (0-2.0); HEMATOCRIT 49.4 % (35.4-49); HEMOGLOBIN 16.5 GM/dL (11.7-16.9); LYMPH % 23.1 % (8-40); MCH 29.1 pg (25.7-33.7); MCHC 33.3 g/dl (32.0-35.9); MEAN CELL VOLUME 87.5 fl (80-96); MEAN PLT VOLUME 8.3 fl (7.5-11.1); MONO % 11.4 % (3.8-10.2); NEUT % 63.7 % (42.8-82.8); PLATELET COUNT 198 K/MM3 (134-434); RBC 5.65 M/mm3 (4.00-5.60); RDW 12.3 % (11.9-15.9); WHITE BLOOD COUNT 5.2 K/mm3 (4.0-10.0)
--- NOTE | 2019-01-06 16:41 | PDOC ---
History of Present Illness - General Chief Complaint: Pain Stated Complaint: ABD PAIN Time Seen by Provider: 01/06/19 15:29 History Source: Patient Exam Limitations: Clinical Condition - History of Present Illness Initial Comments: 01/06/19 16:36 Patient with no significant past medical history status post appendectomy 2 months ago present with complaint of persistent nausea, decreased appetite, intermittent vomiting and epigastric pain for months now. Patient reports symptoms started after appendectomy surgery and resolved but started again. Patient was seen a month for same symptoms with no findings. Denies fever, chills, dizziness, diarrhea or constipation. Patient reported losing 10 pounds in the past month due to loss of appetite. Denies any other symptoms Timing/Duration: other (1 month) Past History - Past Medical History Allergies/Adverse Reactions: Allergies Allergy/AdvReac Type Severity Reaction Status Date / Time No Known Allergies Allergy Verified 01/06/19 15:31 Home Medications: Ambulatory Orders Ondansetron [Zofran Odt -] 4 mg SL TID PRN #21 od.tablet 01/06/19 Pantoprazole Sodium [Protonix] 40 mg PO DAILY #20 tablet. 01/06/19 COPD: No - Suicide/Smoking/Psychosocial Hx Smoking History: Never smoked Have you smoked in the past 12 months: No Number of Cigarettes Smoked Daily: 4 Information on smoking cessation initiated: No 'Breaking Loose' booklet given: 11/05/18 Hx Alcohol Use: No Drug/Substance Use Hx: No Review of Systems - Review of Systems Able to Perform ROS?: Yes Is the patient limited Yi proficient: No Constitutional: No: Chills, Fever, Weakness HEENTM: No: Symptoms Reported Respiratory: No: Symptoms reported Cardiac (ROS): No: Symptoms Reported, See HPI, Chest Pain, Edema, Irregular Heart Rate, Lightheadedness, Palpitations, Syncope, Chest Tightness, Other ABD/GI: Yes: Symptoms Reported, See HPI, Nausea, Poor Appetite, Vomiting ( intermittent), Abdominal cramping (epigastric). No: Abdominal Distended, Abd. Pain w/ defecation, Constipated, Diarrhea, Difficulty Swallowing, Rectal Bleeding, Tarry Stools : No: Burning, Discharge, Frequency, Urgency Neurological: No: Symptoms reported, Weakness, Dizziness All Other Systems: Reviewed and Negative *Physical Exam - Vital Signs Last Vital Signs Temp Pulse Resp BP Pulse Ox 98.1 F 85 18 122/70 99 01/06/19 15:27 01/06/19 15:27 01/06/19 15:27 01/06/19 15:27 01/06/19 15:27 - Physical Exam Comments: 01/06/19 16:40 GENERAL: Well developed, well nourished. Awake and alert. No acute distress. HEENT: Normocephalic, atraumatic. PERRLA, EOMI. No conjunctival pallor. Sclera are non-icteric. Moist mucous membranes. Oropharynx is clear. NECK: Supple. Full ROM. CARDIOVASCULAR: Regular rate and rhythm. No murmurs, rubs, or gallops. Distal pulses are 2+ and symmetric. PULMONARY: No evidence of respiratory distress. Lungs clear to auscultation bilaterally. No wheezing, rales or rhonchi. ABDOMINAL: Soft. Mild epigastric tenderness with deep palpation. Non-distended. No rebound or guarding. No organomegaly. Normoactive bowel sounds. MUSCULOSKELETAL Normal range of motion at all joints. SKIN: Warm and dry. Normal capillary refill. NEUROLOGICAL: Alert, awake, appropriate. Gait is normal without ataxia. PSYCHIATRIC: Cooperative. Good eye contact. Appropriate mood General Appearance: Yes: Nourished, Appropriately Dressed. No: Apparent Distress ED Treatment Course - LABORATORY CBC & Chemistry Diagram: 01/06/19 16:21 01/06/19 16:21 Medical Decision Making - Medical Decision Making 01/06/19 16:37 Patient with no significant past medical history status post appendectomy 2 months ago present with complaint of persistent nausea, decreased appetite, intermittent vomiting and epigastric pain for months now. Patient reports symptoms started after appendectomy surgery and resolved but started again. Patient was seen a month for same symptoms with no findings. Denies fever, chills, dizziness, diarrhea or constipation. Patient reported losing 10 pounds in the past month due to loss of appetite. Denies any other symptoms Exam significant for mild epigastric tenderness to deep palpation with normal bowel sounds otherwise normal exam. Patient no acute distress. No rebound or guarding. Symptoms likely gastritis versus obstruction versus less likely cholecystitis. CBC, chemistry, UA urine culture lab ordered. Abdominal CAT scan with IV contrast ordered to rule out acute pathology. Treat based on lab and imaging results 01/06/19 18:37 CBC, CMP and UA labs unremarkable. patient still no distress. pt pending abd CT 01/06/19 19:[address] by tech due to patient having IV infiltrate with CT contrast with swelling over bicipital muscle of right upper arm with patient report mild pain to right biceps with tightness of area from contrast infiltrate. Warm pack applied to right biceps area to help with swelling. Patient in no acute pathology 01/06/19 20:[address] shows no acute pathology except mild splenomegaly and hepatic steatosis. Patient stable for discharge on zofran prn for nausea with GI follow-up. Complete resolve of swelling of right biceps with warm compress. Patient in no acute distress and stable for discharge *DC/Admit/Observation/Transfer Diagnosis at time of Disposition: Nausea, Hepatic steatosis - Discharge Dispostion Disposition: HOME Condition at time of disposition: Stable Decision to Admit order: No - Prescriptions Prescriptions: Ondansetron [Zofran Odt -] 4 mg SL TID PRN #21 od.tablet PRN Reason: nausea Pantoprazole Sodium [Protonix] 40 mg PO DAILY #20 tablet.dr - Referrals Referrals: Elver Briones MD [Staff Physician] - - Patient Instructions Printed Discharge Instructions: Nonalcoholic Fatty Liver Disease Additional Instructions: Your CATs scan shows hepatic steatosis which is a fatty infiltrate of the liver and mild enlarged spleen. Take prescribed medication as needed for nausea. eat low fat diet. Follow-up with referred GI doctor Print Language: FRENCH - Post Discharge Activity
[2019-01-06 17:02] LABS: ALBUMIN 4.6 g/dl (3.4-5.0); BLOOD UREA NITROGEN 10.2 mg/dL (7-18); CALCIUM 9.2 mg/dL (8.5-10.1); MAGNESIUM 2.3 mg/dL (1.8-2.4); POTASSIUM 4.5 mmol/L (3.5-5.1); TOT PROT 8.1 g/dl (6.4-8.2)
[2019-01-06 18:05] LABS: URINE APPEARANCE CLEAR; URINE BILIRUBIN NEGATIVE (NEGATIVE); URINE COLOR YELLOW; URINE GLUCOSE (UA) NEGATIVE (NEGATIVE); URINE KETONE NEGATIVE (NEGATIVE); URINE LEUK ESTERASE NEGATIVE (NEGATIVE); URINE NITRITE NEGATIVE (NEGATIVE); URINE PROTEIN NEGATIVE (NEGATIVE)
[2019-01-06 23:35] VITALS: BP 115/63; PULSE 63; TEMP 98.4
== END 2019-01-06 21:12 | disposition home or self-care (01) ==
LOC: JER 15:25
DX: E88.89 Other specified metabolic disorders (principal); R11.0 Nausea
CPT/HCPCS: 36415; 74177-TC; 80053; 81003; 83735; 85025; 87086; 99284-25

== ENCOUNTER 2021-11-24 00:23 | Emergency (ER) | payer OTHER ==
[2021-11-24 00:56] VITALS: BMI 25.6
[2021-11-24 01:01] VITALS: BP 126/75; PULSE 87; TEMP 98.2
[2021-11-24] MEDS ORDERED: IBUPROFEN 600 MG TABLET (FP) PO ONE ×2 (02:01→02:02)
[2021-11-24 02:47] LABS: URINE APPEARANCE CLEAR; URINE BILIRUBIN NEGATIVE (NEGATIVE); URINE COLOR YELLOW; URINE GLUCOSE (UA) NEGATIVE (NEGATIVE); URINE KETONE TRACE (NEGATIVE); URINE LEUK ESTERASE NEGATIVE (NEGATIVE); URINE NITRITE NEGATIVE (NEGATIVE); URINE PROTEIN NEGATIVE (NEGATIVE)
[2021-11-24] MEDS ORDERED: METHOCARBAMOL 500 MG TABLET PO ONE (03:39)
[2021-11-24] MEDS ORDERED: LIDOCAINE 5% TOPICAL PATCH TP ONE (03:40)
[2021-11-24] MEDS ORDERED: METHOCARBAMOL 500 MG TABLET ONE (03:42)
[2021-11-24] MEDS ORDERED: LIDOCAINE 5% TOPICAL PATCH ONE (03:42)
[2021-11-24] MEDS ORDERED: LIDOCAINE PATCH REMOVAL MC SCH (22:00)
== END 2021-11-24 03:53 | disposition home or self-care (01) ==
LOC: JER 00:23
DX: M62.830 Muscle spasm of back (principal); K52.9 Noninfective gastroenteritis and colitis, unspecified
CPT/HCPCS: 81003; 87086; 99284-25

== ENCOUNTER 2022-06-21 05:46 | Emergency (ER) | payer OTHER ==
[2022-06-21 05:56] VITALS: TEMP 98.6; BMI 25.4
[2022-06-21] MEDS ORDERED: FAMOTIDINE 20 MG/50 ML IVPB 20 MG in PREMIX 50 IVPB ONE (08:00)
[2022-06-21] MEDS ORDERED: MAG HYDROX/AL HYDROX/SIMETH -MYLANTA- ORAL SUSPENSION PO ONE (08:00)
[2022-06-21] MEDS ORDERED: SODIUM CHLORIDE 1,000 ML IV ONE (08:01)
[2022-06-21] MEDS ORDERED: FAMOTIDINE 20 MG/50 ML IVPB 20 MG/50 ML MG IVPB ONE (08:08)
[2022-06-21] MEDS ORDERED: MAG HYDROX/AL HYDROX/SIMETH 30 ML UNIT-DOSE CUP ONE (08:08)
[2022-06-21 08:54] LABS: BASO % 0.2 % (0-2.0); EOS % 1.2 % (0-4.5); HEMATOCRIT 48.6 % (35.4-49); HEMOGLOBIN 16.6 GM/dL (11.7-16.9); LYMPH % 14.4 % (8-40); MCH 29.6 pg (25.7-33.7); MCHC 34.1 g/dl (32.0-35.9); MEAN CELL VOLUME 86.6 fl (80-96); MEAN PLT VOLUME 8.3 fl (7.5-11.1); MONO % 7.2 % (3.8-10.2); PLATELET COUNT 255 10^3/uL (134-434); RBC 5.61 M/mm3 (4.00-5.60); RDW 12.8 % (11.9-15.9); WHITE BLOOD COUNT 7.8 K/mm3 (4.0-10.0)
[2022-06-21 11:11] VITALS: BP 113/63; PULSE 76; RESP 18
[2022-06-21 11:31] LABS: BLOOD UREA NITROGEN 15.5 mg/dL (7-18)
[2022-06-21 11:34] LABS: CREATININE 0.8 mg/dL (0.55-1.3)
[2022-06-21 11:35] LABS: BILIRUBIN,TOTAL 1.2 mg/dL (0.2-1); TOT PROT 7.1 g/dl (6.4-8.2)
== END 2022-06-21 12:09 | disposition home or self-care (01) ==
LOC: JER 05:46
PROC: 3E033GC Introduction of Other Therapeutic Substance into Peripheral Vein, Percutaneous Approach (ICD-10-PCS; principal; 2022-06-21)
PROC: 3E0337Z Introduction of Electrolytic and Water Balance Substance into Peripheral Vein, Percutaneous Approach (ICD-10-PCS; 2022-06-21)
DX: R10.13 Epigastric pain (principal); R11.0 Nausea
CPT/HCPCS: 36415; 76705-TC; 80053; 83690; 85025; 99284-25

== ENCOUNTER 2023-07-18 22:37 | Emergency (ER) | payer OTHER ==
[2023-07-18 22:44] VITALS: BP 114/66; PULSE 87; RESP 18; TEMP 98.4; BMI 25.9
[2023-07-18] MEDS ORDERED: FAMOTIDINE 20 MG/50 ML IVPB 20 MG/50 ML MG IVPB ONE ×2 (23:23→23:27)
[2023-07-18] MEDS ORDERED: MAG HYDROX/AL HYDROX/SIMETH -MYLANTA- ORAL SUSPENSION PO ONE (23:23)
[2023-07-18] MEDS ORDERED: MAG HYDROX/AL HYDROX/SIMETH 30 ML UNIT-DOSE CUP ONE (23:26)
[2023-07-18 23:53] LABS: BASO % 0.3 % (0-2.0); EOS % 1.3 % (0-4.5); HEMOGLOBIN 15.6 GM/dL (11.7-16.9); LYMPH % 34.3 % (8-40); MCH 29.1 pg (25.7-33.7); MCHC 33.9 g/dl (32.0-35.9); MEAN CELL VOLUME 85.7 fl (80-96); MEAN PLT VOLUME 7.9 fl (7.5-11.1); MONO % 7.9 % (3.8-10.2); NEUT % 56.2 % (42.8-82.8); PLATELET COUNT 239 10^3/uL (134-434); RBC 5.36 M/mm3 (4.00-5.60); RDW 12.9 % (11.9-15.9); WHITE BLOOD COUNT 6.1 K/mm3 (4.0-10.0)
[2023-07-19 00:09] LABS: POTASSIUM 3.9 mmol/L (3.5-5.1)
[2023-07-19 00:11] LABS: CALCIUM 9.2 mg/dL (8.5-10.1)
[2023-07-19 00:12] LABS: BLOOD UREA NITROGEN 14.2 mg/dL (7-18)
[2023-07-19 00:15] LABS: CREATININE 0.7 mg/dL (0.55-1.3)
[2023-07-19 00:16] LABS: BILIRUBIN,TOTAL 0.6 mg/dL (0.2-1); TOT PROT 7.2 g/dl (6.4-8.2)
== END 2023-07-19 00:51 | disposition home or self-care (01) ==
LOC: JER 22:37
PROC: 3E033GC Introduction of Other Therapeutic Substance into Peripheral Vein, Percutaneous Approach (ICD-10-PCS; principal; 2023-07-18)
DX: R10.13 Epigastric pain (principal); R19.7 Diarrhea, unspecified; Z20.822 Contact with and (suspected) exposure to COVID-19
CPT/HCPCS: 0241U-QW; 36415; 80053; 83690; 85025; 99284-25

== ENCOUNTER 2023-09-24 22:56 | Emergency (ER) | payer OTHER ==
[2023-09-24 23:00] VITALS: BP 152/86; PULSE 99; RESP 18; TEMP 98.4; BMI 25.9
[2023-09-24] MEDS ORDERED: MAG HYDROX/AL HYDROX/SIMETH 30 ML UNIT-DOSE CUP ONE (23:59)
[2023-09-24] MEDS ORDERED: ACETAMINOPHEN 325 MG TABLET (FP) ONE (23:59)
[2023-09-25] MEDS: ACETAMINOPHEN 500 MG TABLET (FP) PO ONE (00:06)
[2023-09-25] MEDS: MAG HYDROX/AL HYDROX/SIMETH 30 ML UNIT-DOSE CUP PO ONE (00:06)
[2023-09-25] MEDS ORDERED: KETOROLAC TROMETHAMINE 30 MG/1 ML VIAL ONE (01:03)
[2023-09-25] MEDS: KETOROLAC TROMETHAMINE 30 MG/1 ML VIAL IM ONE (01:15)
== END 2023-09-25 01:58 | disposition home or self-care (01) ==
LOC: JER 22:56
PROC: 3E0233Z Introduction of Anti-inflammatory into Muscle, Percutaneous Approach (ICD-10-PCS; principal; 2023-09-25)
DX: R07.89 Other chest pain (principal); R11.2 Nausea with vomiting, unspecified
CPT/HCPCS: 71046-TC-FY; 82962; 93005; 93010; 99285-25

== ENCOUNTER 2024-03-10 21:53 | Emergency (ER) | payer OTHER ==
[2024-03-10 22:06] VITALS: TEMP 98.4; BMI 25.4
[2024-03-10] MEDS ORDERED: FAMOTIDINE 20 MG TABLET ONE (22:44)
[2024-03-10] MEDS ORDERED: MAG HYDROX/AL HYDROX/SIMETH 30 ML UNIT-DOSE CUP ONE (22:44)
[2024-03-10] MEDS: MAG HYDROX/AL HYDROX/SIMETH 30 ML UNIT-DOSE CUP PO ONE (22:57)
[2024-03-10] MEDS: FAMOTIDINE 10 MG TABLET PO ONE ×2 (22:57→22:58)
[2024-03-10] MEDS: SODIUM CHLORIDE 0.9% 500 ML INFUS.BAG IV ONE (22:58)
[2024-03-10 23:02] LABS: BASO % 0.4 % (0-2.0); HEMATOCRIT 45.4 % (35.4-49); HEMOGLOBIN 15.8 GM/dL (11.7-16.9); MCH 30.5 pg (25.7-33.7); MCHC 34.8 g/dl (32.0-35.9); MEAN CELL VOLUME 87.6 fl (80-96); MEAN PLT VOLUME 7.5 fl (7.5-11.1); MONO % 7.5 % (3.8-10.2); NEUT % 57.1 % (42.8-82.8); PLATELET COUNT 240 10^3/uL (134-434); RBC 5.19 M/mm3 (4.00-5.60); RDW 12.9 % (11.9-15.9); WHITE BLOOD COUNT 6.6 K/mm3 (4.0-10.0)
[2024-03-10 23:32] LABS: POTASSIUM 4.2 mmol/L (3.5-5.1)
[2024-03-10 23:34] LABS: CALCIUM 8.7 mg/dL (8.5-10.1)
[2024-03-10 23:35] LABS: ALBUMIN 3.9 g/dl (3.4-5.0); BLOOD UREA NITROGEN 17.6 mg/dL (7-18)
[2024-03-10 23:38] LABS: CREATININE 0.9 mg/dL (0.55-1.3)
[2024-03-10 23:40] LABS: BILIRUBIN,TOTAL 0.7 mg/dL (0.2-1)
[2024-03-11 00:11] VITALS: BP 100/60; PULSE 54; RESP 14
== END 2024-03-11 00:10 | disposition home or self-care (01) ==
LOC: JER 21:53
DX: R11.2 Nausea with vomiting, unspecified (principal); R10.13 Epigastric pain; R14.0 Abdominal distension (gaseous)
CPT/HCPCS: 36415; 80053; 83690; 85025; 99284-25

== ENCOUNTER 2024-10-14 09:40 | Emergency (ER) | payer OTHER ==
[2024-10-14 09:48] VITALS: BMI 23.0
[2024-10-14 10:16] LABS: URINE APPEARANCE CLEAR; URINE BILIRUBIN NEGATIVE (NEGATIVE); URINE COLOR YELLOW; URINE GLUCOSE (UA) NEGATIVE (NEGATIVE); URINE KETONE NEGATIVE (NEGATIVE); URINE LEUK ESTERASE NEGATIVE (NEGATIVE); URINE NITRITE NEGATIVE (NEGATIVE); URINE PROTEIN NEGATIVE (NEGATIVE); URINE UROBILINOGEN 0.2 mg/dL (0.2-1.0)
[2024-10-14] MEDS: SODIUM CHLORIDE 0.9% 500 ML INFUS.BAG IV ONE (11:03)
[2024-10-14 11:09] LABS: ABSOLUTE IMMATURE GRANULOCYTES 0.02 x10^3/uL (0.0-0.031); BASOPHILS # 0.02 x10^3/uL (0.01-0.08); EOSINOPHIL % 1.5 % (0.8-7.0); EOSINOPHILS # 0.09 x10^3/uL (0.04-0.54); HEMATOCRIT 48.9 % (40.1-51.0); HEMOGLOBIN 16.5 g/dL (13.7-17.5); MCHC 33.7 g/dl (32.3-36.5); MEAN CELL VOLUME 85.5 fl (79.0-92.2); MEAN PLT VOLUME 9.8 fl (9.4-12.4); MONOCYTE # 0.35 x10^3/uL (0.30-0.82); PLATELET COUNT 257 x10^3/uL (163-337)
[2024-10-14 11:35] LABS: CALCIUM 9.7 mg/dL (8.5-10.1); POTASSIUM 4.2 mmol/L (3.5-5.1)
[2024-10-14 11:36] LABS: ALBUMIN 4.3 g/dl (3.4-5.0); BLOOD UREA NITROGEN 14.1 mg/dL (7-18)
[2024-10-14 11:39] LABS: CREATININE 0.7 mg/dL (0.55-1.3)
[2024-10-14 11:40] LABS: BILIRUBIN,TOTAL 0.9 mg/dL (0.2-1)
[2024-10-14 11:41] LABS: TOT PROT 7.5 g/dl (6.4-8.2)
[2024-10-14 13:35] VITALS: BP 96/62; PULSE 94; RESP 16; TEMP 98.8
== END 2024-10-14 14:38 | disposition home or self-care (01) ==
LOC: JERFT 09:40
DX: R30.9 Painful micturition, unspecified (principal)
CPT/HCPCS: 36415; 76775-TC; 76856-TC; 80053; 81003; 85025; 87086; 87491; 87591; 87661; 99284-25